=== PATIENT | female | born 1985 | race Caucasian/White ===

== ENCOUNTER 2016-07-05 05:58 | Inpatient (IN) | payer OTHER ==
--- NOTE | ~2016-07-05 | PN ---
Unit #: [id number] #: [id number] Patient: MARGARETTE BALES [id number] [facility] [address] [place] [address] [id number] I MR#: [id number] NAME: MARGARETTE BALES ROOM: P183 Age: 31 Sex: F Admission Date: 07/05/2016 : 1985 Attending Physician: Iliana Ahuja M.D. Admitting Physician: Iliana Ahuja M.D. Primary Care Physician: Primary Care Physician Emmanuelle SPENCER NOTES DATE 07/08/2016 DISCUSSION Ms. Bales is a 31-year-old white female with substance abuse and mood disorder who was seen today and chart was reviewed and case was discussed with the staff. She remains anxious, withdrawn, unkempt, disheveled, depressed and rather seclusive to herself. Meanwhile, she has been cooperative with treatment recommendations. She has been taking medications and tolerating them fairly well. MENTAL STATUS EXAMINATION Young white female who was casually dressed with fair personal hygiene, appears to be in slight distress or discomfort. She was awake and alert with impaired attention and concentration. Her mood was anxious and depressed with congruent affect. She denies any suicidal or homicidal ideations. Her insight and judgement remains significantly impaired. TREATMENT PLAN 1. We will continue her on her current medications and treatment protocol. We will monitor her response to the medications and make further adjustments as needed. 2. We will continue to follow up. Dictated by... Greer Garcia/jorge TD: 07/10/2016 00:28 JOB #: [id number] Unit #: [id number] #: [id number] Patient: MARGARETTE BALES LEE ANN PROGRESS NOTES Page 1 of 1 X Iliana Ahuja MD PROGRESS NOTE
--- NOTE | ~2016-07-05 | HP ---
Unit #: [id number] #: [id number] Patient: MARGARETTE ANDERSON [id number] [place] [address] [id number] I MR#: [id number] NAME: MARGARETTE ANDERSON ROOM: P183 Age: 31 Sex: F Admission Date: 07/05/2016 : 1985 Attending Physician: Iliana Ahuja M.D. Admitting Physician: Iliana Ahuja M.D. Primary Care Physician: Primary Care Physician No HISTORY AND PHYSICAL HISTORY OF PRESENT ILLNESS Margarette is a 31 year old admitted to [facility] because of her abuse of alcohol. PAST MEDICAL HISTORY 1. Long history of alcohol abuse. 2. History of withdrawal seizures. 3. Hypothyroidism. PAST SURGICAL HISTORY D and C. ALLERGIES No known drug allergies. SOCIAL HISTORY Smokes less than 1 pack per day. Drinks at least 2 bottles of wine on a daily basis and denies illicit drug use. FAMILY HISTORY Medically noncontributory. REVIEW OF SYSTEMS CONSTITUTIONAL: No fever or chills. HEENT: Denies any sore throat, ear pain or runny nose. CARDIOVASCULAR: Denies chest pain, irregular heart rhythm or palpitations. CHEST: Denies shortness of breath or cough. No hemoptysis. GASTROINTESTINAL: Denies nausea, vomiting, diarrhea or chronic constipation. ENDOCRINE: Denies history of increased thirst or urination. No recent significant weight loss or gain. GENITOURINARY: Denies dysuria, frequency, or hematuria. SKIN: Denies any rashes. HEMATOLOGIC: Denies history of increased bleeding or bruising. MUSCULOSKELETAL: Denies any hot, swollen joints. No generalized muscle pain. NEUROLOGIC: Denies problems with vision or speech. No frequent, severe headaches. No numbness, tingling or weakness in any extremities. Denies loss of bladder or bowel control. CURRENT MEDICATIONS 1. Detox protocol. 2. Synthroid 0.125 mg daily. 3. Zoloft 100 mg daily. Unit #: [id number] #: [id number] Patient: MARGARETTE ANDERSON 4. Melatonin 3 mg q.h.s. p.r.n. PHYSICAL EXAMINATION GENERAL: Alert, well-nourished, in no apparent distress. VITAL SIGNS: Blood pressure 100/50, heart rate 80, respirations 16, temperature 98.6. WEIGHT: 135. HEIGHT: 5 feet 10 inches. SKIN: Warm and dry without rash or lesion. HEENT: Normocephalic. TMs not viewed. Oral and nasal passages clear. Conjunctivae clear. PERRLA. EOMs intact. Significant bruising about the right orbit, upper and lower lids. NECK: Supple without lymphadenopathy or thyromegaly. HEART: Regular rate and rhythm without murmur. LUNGS: Clear. ABDOMEN: Soft, nontender. : Not done. EXTREMITIES: No evidence of cyanosis, clubbing or edema. Moves all without focal deficit. NEUROLOGICAL: Grossly within normal limits. Cranial Nerves: II: Visual plata are intact. III, IV AND : Extraocular movements are intact. Pupils are equal, round and reactive to light. V: Facial sensation is grossly normal. VII: Facial movements and expression are normal. VIII: Auditory acuity grossly intact. IX, X: Uvula is midline. Phonation is normal. XI: Patient shrugs shoulders and turns head normally. XII: Tongue protrudes in the midline. Sensory and Motor Function: Sensory and motor sensation is grossly normal. Motor: moves all extremities well. Coordination: Gait is normal. Deep Tendon Reflexes: Intact. IMPRESSION Psychiatric admission. RECOMMENDATIONS PSYCHIATRIC: Per psychiatrist. MEDICAL: See no contraindications to participate in facility's activities. MEDICAL PROGNOSIS Good. MEDICAL CONDITION Stable. Dictated by... Aneta Kelly P.A.-C. for Greer Sams/yady TD: 07/05/2016 20:26 JOB #: [id number] Unit #: [id number] #: [id number] Patient: MARGARETTE ANDERSON HISTORY AND PHYSICAL Page 1 of 1 X Aneta Kelly HISTORY AND PHYSICAL
--- NOTE | ~2016-07-05 | PN ---
Unit #: [id number] #: [id number] Patient: MARGARETTE BALES [id number] [facility] [address] [place] [address] [id number] I MR#: [id number] NAME: MARGARETTE BALES ROOM: P183 Age: 31 Sex: F Admission Date: 07/05/2016 : 1985 Attending Physician: Iliana Ahuja M.D. Admitting Physician: Iliana Ahuja M.D. Primary Care Physician: Primary Care Physician Emmanuelle SPENCER NOTES DATE 07/06/2016 DISCUSSION Ms. Bales is a 31-year-old white female with substance abuse and mood disorder who was seen today and chart was reviewed and case was discussed with the staff. She was laying in her bed and was describing herself in acute distress and discomfort as she was hardly able to make eye contact or carrying on conversation. She was just mumbling stating that she is feeling awful and was moaning and groaning and was noticed to have poor personal hygiene and appears to be quite distress and discomfort. MENTAL STATUS EXAMINATION Young white female who was casually dressed with fair personal hygiene and appears to be in no acute distress or discomfort. She was awake and alert on interaction with intact orientation. Her mood was anxious and depressed with congruent affect. Her speech is slow and goal-directed. She denies any suicidal or homicidal ideations. Her insight and judgement remains slightly impaired. TREATMENT PLAN 1. Will continue on current medications and treatment protocol. Will monitor her response to the medications and make further adjustments as needed. 2. Will continue to follow up. Dictated by... Greer Garcia/yady TD: 07/06/2016 15:57 JOB #: [id number] Unit #: [id number] #: [id number] Patient: MARGARETTE BALES LEE ANN PROGRESS NOTES Page 1 of 1 X Iliana Ahuja MD PROGRESS NOTE
--- NOTE | ~2016-07-05 | DS ---
Unit #: [id number] #: [id number] [facility]: [facility] [id number] [facility] [address] [place] [address] [id number] I MR#: [id number] NAME: MARGARETTE ANDERSON ROOM: P183 Age: 31 Sex: F Admission Date: 07/05/2016 : 1985 Discharge Date: 07/11/2016 Attending Physician: Iliana Ahuja M.D. Primary Care Physician: Primary Care Physician No DISCHARGE SUMMARY IDENTIFYING DATA Ms. Aggarwal is a 31-year-old single white female, who is a resident of [place], [place], and was self-referred to the hospital on a voluntary basis. DISCHARGE DIAGNOSES Psychiatric: Alcohol dependence, moderate and acute withdrawals; major depressive disorder, recurrent, moderate, without psychotic features. Medical: None. Stressors: Moderate psychosocial stressors. HISTORY OF PRESENT ILLNESS Please see initial psychiatric evaluation for details. PAST PSYCHIATRIC HISTORY Please see initial psychiatric evaluation for details. PAST MEDICAL HISTORY Please see initial psychiatric evaluation for details. HOSPITAL COURSE The patient [facility] and was oriented to the hospital environment. Routine p.r.n. medications were initiated, and she was started back on her home medications and alcohol detox protocol was initiated as well and she was closely monitored. She was taking medications regularly and was tolerating them fairly well and was able to show a decent therapeutic response and was able to come out of the detox without any complications and was willing to continue treatment on an outpatient basis and as such, it was decided that she will be discharged home and will continue treatment on an outpatient basis. DISCHARGE MEDICATIONS Zoloft 200 mg a day for depression and Seroquel 100 mg a day for depression. DISCHARGE CONDITION Stable. PROGNOSIS Fair. Dictated by... Unit #: [id number] #: [id number] Patient: MARGARETTE ANDERSON Greer Garcia/catina TD: 07/11/2016 06:36 JOB #: [id number] DISCHARGE SUMMARY Page 1 of 1 X Iliana Ahuja MD X DISCHARGE SUMMARY
--- NOTE | ~2016-07-05 | PN ---
Unit #: [id number] #: [id number] Patient: MARGARETTE BALES [id number] [facility] [address] [place] [address] [id number] MR#: [id number] NAME: MARGARETTE BALES ROOM: P183 Age: 31 Sex: F Admission Date: 07/05/2016 : 1985 Attending Physician: Iliana Ahuja M.D. Admitting Physician: Iliana Ahuja M.D. Primary Care Physician: Primary Care Physician Emmanuelle SPENCER NOTES DATE 07/09/2016 DISCUSSION Ms. aBles is a 31-year-old white female with mood disorder and substance abuse who was seen today and chart was reviewed and case was discussed with the staff. She remains anxious, withdrawn and rather seclusive to herself. Meanwhile, she has been cooperative with treatment recommendations as she has been taking the medications and tolerating them fairly well with no reported side effects. MENTAL STATUS EXAMINATION Young white female who was casually dressed with fair personal hygiene, appears to be in no acute distress or discomfort. She was awake and alert on interaction with intact orientation. Her mood was anxious with congruent affect. She denies any suicidal or homicidal ideations. Her insight and judgement remains slightly impaired. TREATMENT PLAN 1. We will continue her on her current medications and treatment protocol. We will monitor her response to the medication and make further adjustments as needed. 2. We will continue to follow up. Dictated by... Greer Garcia/jorge TD: 07/10/2016 04:34 JOB #: [id number] Unit #: [id number] #: [id number] Patient: MARGARETTE BALES LEE ANN PROGRESS NOTES Page 1 of 1 X Iliana Ahuja MD PROGRESS NOTE
--- NOTE | ~2016-07-05 | CO ---
Unit #: [id number] #: [id number] Patient: MARGARETTE ANDERSON [id number] [place] [address] [id number] I MR#: [id number] NAME: MARGARETTE ANDERSON ROOM: P183 Age: 31 Sex: F Admission Date: 07/05/2016 : 1985 Attending Physician: Iliana Ahuja M.D. Primary Care Physician: Primary Care Physician No Consultation Date: 07/06/2016 CONSULTATION REPORT AUGUSTO Cavazos is a 31-year-old admitted to [facility] to detox alcohol. At time of admission, she reported to me that she had a miscarriage with D and C done at [facility] 4 to 5 days prior to admission. In reviewing her intake assessment, she reported that the procedure was done 12 days prior to this admission. On admission, she had a positive beta hCG. We were asked to assess and give recommendations. We obtained records from [facility] which showed that she did have a D and C after a miscarriage 12 days prior to her admission on 07/05/2016. gestation was calculated at 10-1/2 weeks. Beta hCG quantitative on 07/06/2016 was 171.92. ASSESSMENT Positive beta hCG after a dilatation and curettage. This is not usual and can be expected. PLAN Repeat beta hCG quantitative on 07/08/2016. We should expect to see level decreasing. The patient knows to follow up with her [employer] if any complications develop post discharge. Dictated by... Melo MackeyAYannick. for Greer Sams/catina TD: 07/08/2016 14:01 JOB #: [id number] CONSULTATION REPORT Page 1 of 1 X Aneta Kelly CONSULTATION REPORT
--- NOTE | ~2016-07-05 | PN ---
Unit #: [id number] #: [id number] Patient: MARGARETTE BALES [id number] [facility] [address] [place] [address] [id number] I MR#: [id number] NAME: MARGARETTE BALES ROOM: P183 Age: 31 Sex: F Admission Date: 07/05/2016 : 1985 Attending Physician: Iliana Ahuja M.D. Admitting Physician: Iliana Ahuja M.D. Primary Care Physician: Emmanuelle Primary Care Physician LEE ANN PROGRESS NOTES DATE 07/10/2016 DISCUSSION Ms. Bales is a 31-year-old white female who was seen today and chart was reviewed and case was discussed with the staff. She was doing somewhat better and informed me that she wants to get into the (1) injection program and she (2) medicaid and stated that she would be going to some place in [place] after getting out of the hospital. Even though she was staying in [place] with one of her family, she came to the hospital. I informed her that we will have to contact delinquency prevention social worker to help secure some discharge planning first to where she will be staying in [place] so she can followup with her local community mental health center. MENTAL STATUS EXAMINATION Young white female who was casually dressed with fair personal hygiene and appears to be in no acute distress or discomfort. She was awake and alert on interaction with intact orientation. Her mood was anxious with a congruent affect. Her speech is slow with good activation. She denies any suicidal or homicidal ideation. She also denies any auditory or visual hallucinations. Her insight and judgment remains quite clear. TREATMENT PLAN 1. We will continue her on her current medications and treatment protocol. We will monitor her response to the medication and make further adjustments as needed. 2. We will continue to follow up. Dictated by... Greer Garcia/leighton TD: 07/10/2016 09:27 JOB #: [id number] Unit #: [id number] #: [id number] Patient: MARGARETTE BALES [facility] PROGRESS NOTES Page 1 of 1 X Iliana Ahuja MD NOTE
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
--- NOTE | ~2016-07-05 | PN ---
Unit #: [id number] #: [id number] Patient: MARGARETTE BALES [id number] [facility] [address] [place] [address] [id number] I MR#: [id number] NAME: MARGARETTE BALES ROOM: P183 Age: 31 Sex: F Admission Date: 07/05/2016 : 1985 Attending Physician: Iliana Ahuja M.D. Admitting Physician: Iliana Ahuja M.D. Primary Care Physician: Primary Care Physician Emmanuelle SPENCER NOTES DATE 07/07/2016 DISCUSSION Ms. Bales is a 31-year-old white female who was seen today and chart was reviewed and case was discussed with the staff. She reports feeling anxious and depressed and reports that before she got she was on a higher dose of Zoloft along with some Seroquel and once she got the medications were tapered down but then she had a miscarriage at 10-1/2 weeks and now that she is not anymore, she stated she would like to go back on her medications. MENTAL STATUS EXAMINATION Young white female who was casually dressed with fair personal hygiene and appears to be in no acute distress or discomfort. She was awake and alert on interactions with intact orientation. Her mood was anxious and depressed with congruent affect. Her speech is slow and goal-directed. She denies any suicidal or homicidal ideations and also denies any auditory or visual hallucinations. Her insight and judgement remains slightly impaired. TREATMENT PLAN 1. Will continue on current medications and treatment protocol. Will monitor her response to the medications and make further adjustments as needed. 2. We will continue to follow up. Dictated by... Greer Garcia/yady TD: 07/07/2016 17:58 JOB #: [id number] Unit #: [id number] #: [id number] Patient: MARGARETTE BALESDARYN SPENCER NOTES Page 1 of 1 X Iliana Ahuja MD PROGRESS NOTE
[2016-07-06 09:51] LABS: URINE APPEARANCE TURBID; URINE BLOOD 3+ (NEG); URINE COLOR DK YELLOW; URINE GLUCOSE NEG (NEG); URINE KETONE NEG (NEG); URINE LEUKOCYTE ESTERASE 2+ (NEG); URINE NITRATE NEG (NEG); URINE PH 6.5 (5-8); URINE PROTEIN 1+ (NEG); URINE SPECIFIC GRAVITY 1.025 (1.003-1.035)
[2016-07-06 09:57] LABS: URINE BACTERIA AUWI 1+ (NEGATIVE); URINE SQUAMOUS EPITHELIAL CELL FEW /[HPF]; UWBCS1 AUWI 25-50 (0-5)
[2016-07-06 10:23] LABS: URINE BILIRUBIN NEG (NEG)
[2016-07-06 10:26] LABS: URINE AMORPHOUS SEDIMENT AMORP URATES; URINE MUCUS PRESENT
[2016-07-06 10:59] LABS: AMPHETAMINE NEG (NEG); BARBITURATES NEG (NEG); BENZODIAZEPINES POS (NEG); COCAINE NEG (NEG); MARIJUANA NEG (NEG); OPIATES NEG (NEG); TRICYCLIC ANTIDEPRESSANTS NEG (NEG); U METHADONE NEG (NEG)
[2016-07-06 12:43] LABS: BASOPHIL% 0.7 % (0-2.5); EOSINOPHIL# 0.1 X10e3 (0-0.7); EOSINOPHIL% 2.2 % (0.0-7.0); HEMATOCRIT 33.9 % (35.0-45.0); HEMOGLOBIN 11.2 gm/dL (12.0-16.0); LYMPHOCYTE# 1.2 X10e3 (1.0-3.5); LYMPHOCYTE% 21.6 % (17.0-45.0); MEAN CELL VOLUME 94.9 FL (83-96); MEAN CORPUSCULAR HEMOGLOBIN 31.4 PG (28-34); MEAN CORPUSCULAR HGB CONC 33.1 g/dL (30-36); MEAN PLATELET VOLUME 7.2 FL (6.5-11.5); MONOCYTE# 0.4 X10e3 (0-1.0); MONOCYTE% 6.8 % (3.0-12.0); NEUTROPHIL# 3.9 X10e3 (1.5-7.1); NEUTROPHIL% 68.7 % (40-75); PLATELET COUNT 265 X10e3 (140-420); RED BLOOD COUNT 3.57 X10e (3.90-5.30); RED CELL DISTRIBUTION WIDTH 13.7 % (11.0-15.5); WHITE BLOOD COUNT 5.6 X10e3 (4.0-10.5)
[2016-07-06 12:49] LABS: DIFF IND NO
[2016-07-06 13:02] LABS: ALBUMIN SERUM 3.7 g/dL (3.5-5.0); BILIRUBIN,TOTAL 1.1 mg/dL (0.2-2.0); CALCIUM SERUM 8.5 mg/dL (8.4-10.2); CREATININE SERUM 0.6 mg/dL (0.6-1.4); GLOM FILT RATE Estimated 123.2 mL/min (>60); POTASSIUM 3.5 mmol/L (3.5-5.1); PROTEIN TOTAL SERUM 6.5 g/dL (6.0-8.3)
== END 2016-07-11 09:45 | disposition home or self-care (01) | DRG 897 ==
LOC: P1E 05:58
PROVIDERS: Psychiatry & Neurology Psychiatry
PROC: HZ2ZZZZ Detoxification Services for Substance Abuse Treatment (ICD-10-PCS; principal; 2016-07-05)
DX: F10.230 Alcohol dependence with withdrawal, uncomplicated (principal); F33.1 Major depressive disorder, recurrent, moderate; Z59.0 Homelessness; E03.9 Hypothyroidism, unspecified; F17.210 Nicotine dependence, cigarettes, uncomplicated
CPT/HCPCS: 80053; 80307; 81003; 84702; 84703; 85025; 86592